=== PATIENT | male | born 1945 | race Caucasian/White ===

== ENCOUNTER 2024-06-10 20:09 | Emergency (ER) | payer MEDICARE, OTHER, SELFPAY ==
[2024-06-10 20:11] VITALS: BP 107/85
[2024-06-10 20:38] VITALS: BMI 27.2
--- NOTE | 2024-06-10 22:11 | ED.MUSCINJ ---
HPI-Injury
General
Chief Complaint: Fall
Source: patient
Exam Limitations: none
Time Seen by Provider: 06/10/24 21:16
Nursing documentation reviewed up to this point in time: agreed with
History of Present Illness-Injury
Is this injury a work related problem?: No
Is pt an associate of [facility]/[place]?: No
Initial Injury comments:
Patient states he tripped while walking up one step. Fell forward. Denies hitting his head. Able to get self up. Complains of pain to his right shoulder,left hip. Injury occurred this afternoon. Brought to eD by spouse for eval.
Past History
Past History
ED Past Medical History: HTN, Hypercholesterolemia and Other (BPH)
ED Past Surgical History: Other (Hernia repair, cataracts)
Social History
Tobacco: Non-smoker
Review of Systems
Review of Systems
Allergies reviewed?: Yes
All Other Systems: ROS reviewed and negative except as documented in HPI and ROS
Constitutional: Reports no symptoms
EENT: Reports no symptoms
Respiratory: Reports no symptoms
Cardiac: Reports no symptoms
ABD/GI: Reports no symptoms
Musculoskeletal: Reports joint pain (Pain to left hip, right shoulder)
Skin: Reports no symptoms
Neurological: Reports no symptoms
Psychiatric: Reports no symptoms
Musculoskeletal Injury Exam
Musculoskeletal Injury Exam
Right Shoulder:
Pain with Movement?: Moderate
Tender to palpation?: Moderate
Soft tissue swelling?: None
External deformity and angulation?: None
Contusion?: Moderate
Hematoma-local bleeding into tissue?: None
Strain- Sprain- Tear (Connective tissue injury)?: Moderate
Crepitus with movement?: No
Malalignment/deformity?: No
Range of motion: Limited
Distal skin color and temperature: normal-warm & good color
Capillary Refill: normal
Normal distal neurovascular exam?: Yes
Peripheral Pulses: radial (right): 3+
Left Hip:
Pain with Movement?: Moderate
Tender to palpation?: Moderate
Soft tissue swelling?: None
External deformity and angulation?: None
Joint effusion?: None
Contusion?: Moderate
Hematoma-local bleeding into tissue?: None
Strain- Sprain- Tear (Connective tissue injury)?: Moderate
Crepitus with movement?: No
Joint instability?: No
Malalignment/deformity?: No
Range of motion: Full
Distal skin color and temperature: normal-warm & good color
Capillary Refill: normal
Normal distal neurovascular exam?: Yes
Phy Exam
General Physical Exam
General Presentation: well appearing and no apparent distress
General age: appears stated age
General Skin: warm and dry
General Habitus: normal
Musculoskeletal Exam
Musculoskeletal Exam: neuro vasc intact and other (Pain to right shoulder, left hip. No swelling or bruising. )
Skin Exam
Skin Exam: normal color, warm/dry and no rash
Psychiatric Exam
Psychiatric Exam: normal mood/affect
Injury Course
Orders/Labs/Results
Orders:
Orders
06/10/24 20:44
CR Shoulder - Right Min 2 View Urgent
Comment:
Reason For Exam: fall,pain
Hip, Left 2-3 Views [CR Hip - LT w/wo Pel 2-3 Vw*] Urgent
Comment:
Reason For Exam: fall,pain
Include a pelvis x-ray?: Yes
06/10/24 22:05
Hydrocodone 5/APAP 325 [[place] 5/325] 1 tablet PO NOW STA
*Radiology
Radiology exam reviewed: radiology read reviewed
*Pulse Oximetry
Patient hypoxic: no
*Critical Care Note
Total Time (30-74mins, 75-104mins- exclusive of procedures): Not Applicable
ED Attending Note
-
Portions of this chart may have been created with voice recognition software.� Occasional wrong word or��sound alike� substitutions may have occurred due to the inherent limitations of voice recognition software.
Discharge Plan
Departure
Patient Disposition: Home (Routine Discharge)
Date of Disposition: 06/10/24
Time of Disposition: 22:05
Patient with high blood pressure during this ER visit?: No
Condition: Good
Covid-19: Not Applicable
Discharge Problem:
Shoulder sprain, Hip sprain
Instructions: Contusion (DC), Sprain (DC), Preventing falls in adults, Using Cold for Pain
Prescriptions:
New
oxycodone 5 mg capsule
5 mg PO Q4H PRN (Reason: Pain) Qty: 10 0RF
No Action
multivitamin 1 EACH tablet
1 ea PO DAILY
tamsulosin 0.4 MG capsule
0.4 mg PO DAILY
simvastatin 20 MG tablet
40 mg PO QPM
finasteride 5 MG tablet
1 tab PO DAILY
olmesartan 20 MG tablet
20 mg PO DAILY
Toprol Xl
1 tab PO DAILY
Referrals:
Yovanny Fernandez MD [Family Provider] -
Activity Restrictions/Additional Instructions:
Follow up with your orthopedic provider.
Interventions
Interventions:
*Risk Screen - Suicide Last Done: 06/10/24 20:10
*General Assessment Last Done: 06/10/24 20:11
*Neglect/Abuse Screening Last Done: 06/10/24 20:11
*ED COVID-19 Vaccine History Last Done: 06/10/24 20:39
ED-Musculoskeletal Assessment Last Done: 06/10/24 20:40
ED- Neurological Assessment Last Done: 06/10/24 20:40
ED-Skin Assessment Last Done: 06/10/24 20:40
Discharge Date and Time
Print Language: [place]
[2024-06-10] MEDS: NORCO 5/325 1 TABLET PO (22:15)
== END 2024-06-10 22:44 | disposition home or self-care (01) ==
LOC: EMR 20:09
PROVIDERS: EMERGENCY PHYSICIAN Emergency Medicine; FAMILY PHYSICIAN Family Medicine
DX: S43.401A Unspecified sprain of right shoulder joint, initial encounter (principal); S73.102A Unspecified sprain of left hip, initial encounter; W10.9XXA Fall (on) (from) unspecified stairs and steps, initial encounter
CPT/HCPCS: 99283; 73030; 73502

== ENCOUNTER → 2024-08-23 06:40 | Outpatient (REF) | payer MEDICARE, OTHER, SELFPAY | LOC: PAVMRI 06:40 | PROVIDERS: ATTENDING PHYSICIAN Orthopaedic Surgery; FAMILY PHYSICIAN Family Medicine | DX: M25.511 Pain in right shoulder (principal) | CPT/HCPCS: 73221 ==

== ENCOUNTER 2025-05-20 14:43 | Emergency (ER) | payer MEDICARE, OTHER, SELFPAY ==
[2025-05-20 14:44] VITALS: BP 124/84
--- NOTE | 2025-05-20 16:32 | ED.MUSCINJ ---
HPI-Injury
General
Chief Complaint: Extremity Pain (non-traumatic)
Source: patient
Time Seen by Provider: 05/20/25 15:45
History of Present Illness-Injury
Initial Injury comments:
79-year-old male presents with intermittent bilateral hip pain over the past week or so but today he noticed increased pain to the right hip and anterior thigh. This started after walking up and down the stairs. No fall. Since then he has been
having swelling in the proximal anterior right thigh. No chest pain or shortness of breath. He is on flecainide and Eliquis for A-fib. He is not a diabetic. He states the pain is bad to the point where he cannot bear any weight on it. No other
complaints at this time
Past History
Past History
ED Past Medical History: HTN, Hypercholesterolemia and Other (BPH)
ED Past Surgical History: Other (Hernia repair, cataracts)
Social History
Tobacco: Non-smoker
Phy Exam
Physical Exam
Physical Exam:
General: Well-appearing male in no acute respiratory distress
HEENT normal cephalic atraumatic
Heart: Regular rate and rhythm
Lungs: Clear no wheeze
Musculoskeletal exam: The right anterior thigh is swollen and tender into the groin. The swelling extends into the mid thigh. He is also tender to the lateral aspect of the right hip. Vascular 2+ DP pulse right foot
. 2+ femoral pulse right groin
Neurologic: Good sensation right leg
Injury Course
Orders/Labs/Results
Orders:
Orders
05/20/25 14:49
US Periph Venous LOWER Ext RT Urgent
Comment: attn upper leg
Reason For Exam: R leg swelling
05/20/25 16:01
CR Femur - Right Min 2 Vw Urgent
Comment:
Reason For Exam: pain,.swelling
CR Pelvis - 1 Or 2 Views Urgent
Comment:
Reason For Exam: pain right hip
05/20/25 16:31
Hydrocodone 5/APAP 325 [[place] 5/325] 1 tablet PO NOW STA
MDM/Problems Addressed
Differential Diagnosis Includes:
Right hip and thigh pain with swelling. Consider muscle strain versus hematoma versus fracture versus DJD versus DVT
DVT unlikely given anticoagulated state
Compartments are soft, no sign of compartment syndrome
*Pulse Oximetry
SaO2: 99
Oxygen Mode of Delivery: Room air
Patient hypoxic: no
*Critical Care Note
Total Time (30-74mins, 75-104mins- exclusive of procedures): Not Applicable
Update Note
Update Note:
Ultrasound right leg negative for DVT question possible lipoma versus hematoma in the anterior thigh. X-ray of the pelvis and right femur were negative for acute bony abnormality. I suspect underlying hip strain with hematoma. No signs of
compartment syndrome. Patient was able to ambulate with a walker here and is comfortable going home. He has an appoint with orthopedics in 2 days.
ED Attending Note
-
Portions of this chart may have been created with voice recognition software.� Occasional wrong word or��sound alike� substitutions may have occurred due to the inherent limitations of voice recognition software.
Discharge Plan
Departure
Patient Disposition: Home (Routine Discharge)
Date of Disposition: 05/20/25
Time of Disposition: 18:36
Patient with high blood pressure during this ER visit?: No
Discharge Problem:
Hematoma
Instructions: Muscle and Bone Pain (DC)
Prescriptions:
New
hydrocodone-acetaminophen 5-325 mg tablet
1 tab PO TID PRN (Reason: Pain) Qty: 10 0RF
No Action
multivitamin 1 EACH tablet
1 ea PO DAILY
tamsulosin 0.4 MG capsule
0.4 mg PO DAILY
simvastatin 20 MG tablet
40 mg PO QPM
finasteride 5 MG tablet
1 tab PO DAILY
olmesartan 20 MG tablet
20 mg PO DAILY
Toprol Xl
1 tab PO DAILY
oxycodone 5 mg capsule
5 mg PO Q4H PRN (Reason: Pain) Qty: 10 0RF
Referrals:
Yovanny Fernandez MD [Family Provider, Family Practice]
Activity Restrictions/Additional Instructions:
Use pain medicine as needed for severe pain. Use walker for support and ambulating. Follow-up with orthopedics as planned. Return if worse otherwise
Interventions
Interventions:
*Risk Screen - Suicide Last Done: 05/20/25 14:44
*General Assessment Last Done: 05/20/25 14:47
*Neglect/Abuse Screening Last Done: 05/20/25 18:26
*ED- Fall Risk Assessment Last Done: 05/20/25 16:07
ED-Skin Assessment Last Done: 05/20/25 16:05
ED-Peripheral Vascular Assessment Last Done: 05/20/25 16:05
ED-Musculoskeletal Assessment Last Done: 05/20/25 16:05
Discharge Date and Time
Print Language: LATVIAN
[2025-05-20] MEDS: NORCO 5/325 1 TABLET PO (16:37)
[2025-05-20 18:26] VITALS: BP 144/91
== END 2025-05-20 18:45 | disposition home or self-care (01) ==
LOC: EMR 14:43
PROVIDERS: EMERGENCY PHYSICIAN Emergency Medicine; FAMILY PHYSICIAN Family Medicine
DX: S70.01XA Contusion of right hip, initial encounter (principal); X58.XXXA Exposure to other specified factors, initial encounter; I48.91 Unspecified atrial fibrillation; I10 Essential (primary) hypertension; E78.00 Pure hypercholesterolemia, unspecified; N40.0 Benign prostatic hyperplasia without lower urinary tract symptoms; Z79.01 Long term (current) use of anticoagulants
CPT/HCPCS: 99284; 72170; 73552; 93971

== ENCOUNTER 2025-05-26 17:57 | Observation (INO) | payer MEDICARE, OTHER, SELFPAY ==
[2025-05-26 16:23] VITALS: BP 109/82
--- NOTE | 2025-05-26 16:39 | ED.GENMED ---
History of Present Illness
<Tram Diaz PA-C - Last Filed: 05/26/25 18:49>
General
Chief Complaint: Musculo-Skeletal Complaint
Source: patient and records
Exam Limitations: none
Time Seen by Provider: 05/26/25 16:37
History of Present Illness
History of Present Illness:
79yoM with a history of atrial fibrillation on Eliquis, hypertension, hyperlipidemia presenting with his for evaluation of right hip and leg pain. Symptoms initially began about a week ago. He states he bent over and felt a pain in the hip.
He was seen in the ED on 05/20 for the symptoms. X-rays were normal and venous duplex revealed 'questionable isoechoic soft tissue lesion within the subcutaneous soft tissues of the proximal thigh which may represent a fat-based lesion such as
lipoma although no definite borders are identified. Nonemergent CT or MRI may be considered if the patient reports a palpable abnormality.' He was diagnosed with a hematoma and discharge. He saw Dr. Ramey in the office this past week and plan
was for outpatient MRI. He started to have worsening pain today and was unable to ambulate prompting EMS call. spoke with the orthopedic PA presales consultant who advised them to go to the ED and be admitted for inpatient MRI. No paresthesias. He
denies any worsening swelling.
Past History
<Trma Diaz PA-C - Last Filed: 05/26/25 18:49>
Past History
ED Past Medical History: HTN, Hypercholesterolemia and Other (BPH)
ED Past Surgical History: Other (Hernia repair, cataracts)
Social History
Tobacco: Non-smoker
Phy Exam
<Tram Diaz PA-C - Last Filed: 05/26/25 18:49>
General Physical Exam
General Presentation: well appearing and no apparent distress
General Skin: warm and dry
General Habitus: normal
General Mental: alert
ENT Exam
ENT Exam: normocephalic
Pulmonary Exam
Pulmonary Exam: no respiratory distress
Neurological Exam
Neurological Exam: alert
[place] Coma Scale
Eye Opening: Spontaneous
Verbal Response: Oriented
Motor Response: Obeys Commands
GCS Total Score: 15
Musculoskeletal Exam
Musculoskeletal Exam: other (Ecchymosis noted to R lateral thigh. No significant soft tissue swelling. ROM of R hip decreased. Compartments soft. 2+ DP pulses bilaterally and sensation intact. )
Skin Exam
Skin Exam: warm/dry
Psychiatric Exam
Psychiatric Exam: normal mood/affect
Course
<Tram Diaz PA-C - Last Filed: 05/26/25 18:49>
Orders/Labs/Results
Orders:
Orders
05/26/25 Dinner
Regular
At Your Request: Full Participation
Does patient need a safe tray?: No
05/26/25 16:52
HYDROmorphone [Dilaudid] 0.5 mg IV NOW STA
05/26/25 17:05
Complete Blood Count/With Diff Urgent
Comprehensive Metabolic Panel Urgent
05/26/25 17:35
Admit/Transfer Patient As Directed
Co-Sign Provider:
Level of Care: Observation services
Assign to:: Telemetry
Physician / Group: yenni krueger
Diagnosis: traumatic Rhip/mid thigh pain/hematoma,amb dys, P.afib
Reason for Telemetry: Arrhythmia
Date to Stop Telemetry: 05/29/25
Time to Stop Telemetry: 11:00
Code Status As Directed
Resuscitation Status: Full Code
05/26/25 17:37
PRN Pain Medication Management As Directed
May give lesser potent ordered pain med per pt: Yes
preference::
Protocol:: Medication orders for pain may be administered in a
manner that supports deferring to patient preference
when the pt is:
- Requesting an ordered lesser potent pain medication.
Least to most potent pain medications are defined
as: acetaminophen < NSAID < tramadol < opioids
(morphine, oxycodone, hydromorphone).
- Requesting a lesser dose of the same medication IF
ORDERED.
- Requesting a less intrusive route of administration
if both routes are prescribed by the provider (PO <
IV).
05/26/25 17:42
ORTHOPEDIC CONSULT Routine
Consulting Provider: Casey Velez
Was physician already notified: Yes
Reason for consult: right hip/thigh pain hematoma amb dysfunction
05/26/25 18:41
Acetaminophen [Tylenol] 650 mg PO Q4HPRN PRN
Bisacodyl [Dulcolax] 10 mg RECTAL [id number] PRN
Docusate W/Senna [Senokot-S] 1 tablet PO BIDPRN PRN
HYDROmorphone [Dilaudid] 0.5 mg IV Q3HPRN PRN
HYDROmorphone [Dilaudid] 1 mg IV Q4HPRN PRN
Hydrocodone 5/APAP 325 [[place] 5/325] 1 tablet PO TID PRN breakthru mod pain breakthru mod pain
Ondansetron Injectable [Zofran] 4 mg IV Q6HPRN PRN
Polyethylene Glycol Powder [Miralax] 17 grams PO DAILYPRN PRN
simvastatin 40 mg PO QPM
05/26/25 18:41
Activity As Directed
Activity Level: With Assistance
Pneumatic Compression Sleeves As Directed
Type: Knee high
Vital Signs As Directed
Frequency: Per unit guidelines
Ot Eval And Treat Routine
Pt Eval And Treat Routine
Activity Level: With Assistance
DX Deep Vein Thrombosis Video Routine
05/26/25 20:00
Flecainide [Tambocor] 50 mg PO BID
05/26/25 22:00
silodosin 8 mg PO HS
05/27/25 06:00
Complete Blood Count/With Diff IN AM
Comprehensive Metabolic Panel IN AM
MR Right Le Joint With IN AM
Comment: right hip/mid thigh hematoma injury
Reason For Exam: hematoma
OK for patient to be off Cardiac Monitoring for MRI: Yes
Recent pill cam endoscopy?: No
Pacemaker/Defibrillator?: No
05/27/25 08:00
Finasteride [Proscar] 5 mg PO DAILY
Tamsulosin [Flomax] 0.4 mg PO DAILY
Toprol Xl 12.5 mg PO DAILY
05/29/25 11:00
DC Protocol for Telemetry ONCE
Abnormal Lab Results
05/26/25
17:05
RBC 3.74 L 10^6/uL
(4.70-6.10)
Hgb 12.2 L g/dL
(13.0-18.0)
Hct 35.8 L %
(39.0-52.0)
MCV 95.7 H fL
(80.0-94.0)
MCH 32.6 H pg
(27.0-31.0)
Absolute Monos (auto) 0.7 H 10^3/uL
(0.1-0.6)
Lymphocytes % 16.5 L %
(20.5-51.1)
BUN 22 H mg/dl
(9-20)
Glucose 118 H mg/dl
(70-99)
05/26/25 17:05
05/26/25 17:05
Vital Signs
Initial and Last Documented VS:
Initial Vital Signs
Temp Pulse Resp BP Pulse Ox
97.9 F 64 18 109/82 99
05/26/25 16:23 05/26/25 16:23 05/26/25 16:23 05/26/25 16:23 05/26/25 16:23
Last Documented Vital Signs
Temp Pulse Resp BP Pulse Ox
97.9 F 56 18 152/73 98
05/26/25 16:23 05/26/25 18:15 05/26/25 16:23 05/26/25 18:00 05/26/25 18:15
<Saman NiravSy Crooks DO - Last Filed: 05/26/25 17:10>
Orders/Labs/Results
Orders:
Orders
05/26/25 Dinner
Regular
At Your Request: Full Participation
Does patient need a safe tray?: No
05/26/25 16:52
HYDROmorphone [Dilaudid] 0.5 mg IV NOW STA
05/26/25 17:05
Complete Blood Count/With Diff Urgent
Comprehensive Metabolic Panel Urgent
05/26/25 17:35
Admit/Transfer Patient As Directed
Co-Sign Provider:
Level of Care: Observation services
Assign to:: Telemetry
Physician / Group: yenni krueger
Diagnosis: traumatic Rhip/mid thigh pain/hematoma,amb dys, P.afib
Reason for Telemetry: Arrhythmia
Date to Stop Telemetry: 05/29/25
Time to Stop Telemetry: 11:00
Code Status As Directed
Resuscitation Status: Full Code
05/26/25 17:37
PRN Pain Medication Management As Directed
May give lesser potent ordered pain med per pt: Yes
preference::
Protocol:: Medication orders for pain may be administered in a
manner that supports deferring to patient preference
when the pt is:
- Requesting an ordered lesser potent pain medication.
Least to most potent pain medications are defined
as: acetaminophen < NSAID < tramadol < opioids
(morphine, oxycodone, hydromorphone).
- Requesting a lesser dose of the same medication IF
ORDERED.
- Requesting a less intrusive route of administration
if both routes are prescribed by the provider (PO <
IV).
05/26/25 17:42
ORTHOPEDIC CONSULT Routine
Consulting Provider: Casey Velez
Was physician already notified: Yes
Reason for consult: right hip/thigh pain hematoma amb dysfunction
05/26/25 18:41
Acetaminophen [Tylenol] 650 mg PO Q4HPRN PRN
Bisacodyl [Dulcolax] 10 mg RECTAL [id number] PRN
Docusate W/Senna [Senokot-S] 1 tablet PO BIDPRN PRN
HYDROmorphone [Dilaudid] 0.5 mg IV Q3HPRN PRN
HYDROmorphone [Dilaudid] 1 mg IV Q4HPRN PRN
Hydrocodone 5/APAP 325 [[place] 5/325] 1 tablet PO TID PRN breakthru mod pain breakthru mod pain
Ondansetron Injectable [Zofran] 4 mg IV Q6HPRN PRN
Polyethylene Glycol Powder [Miralax] 17 grams PO DAILYPRN PRN
simvastatin 40 mg PO QPM
05/26/25 18:41
Activity As Directed
Activity Level: With Assistance
Pneumatic Compression Sleeves As Directed
Type: Knee high
Vital Signs As Directed
Frequency: Per unit guidelines
Ot Eval And Treat Routine
Pt Eval And Treat Routine
Activity Level: With Assistance
DX Deep Vein Thrombosis Video Routine
05/26/25 20:00
Flecainide [Tambocor] 50 mg PO BID
05/26/25 22:00
silodosin 8 mg PO HS
05/27/25 06:00
Complete Blood Count/With Diff IN AM
Comprehensive Metabolic Panel IN AM
MR Right Le Joint With IN AM
Comment: right hip/mid thigh hematoma injury
Reason For Exam: hematoma
OK for patient to be off Cardiac Monitoring for MRI: Yes
Recent pill cam endoscopy?: No
Pacemaker/Defibrillator?: No
05/27/25 08:00
Finasteride [Proscar] 5 mg PO DAILY
Tamsulosin [Flomax] 0.4 mg PO DAILY
Toprol Xl 12.5 mg PO DAILY
05/29/25 11:00
DC Protocol for Telemetry ONCE
Abnormal Lab Results
05/26/25
17:05
RBC 3.74 L 10^6/uL
(4.70-6.10)
Hgb 12.2 L g/dL
(13.0-18.0)
Hct 35.8 L %
(39.0-52.0)
MCV 95.7 H fL
(80.0-94.0)
MCH 32.6 H pg
(27.0-31.0)
Absolute Monos (auto) 0.7 H 10^3/uL
(0.1-0.6)
Lymphocytes % 16.5 L %
(20.5-51.1)
BUN 22 H mg/dl
(9-20)
Glucose 118 H mg/dl
(70-99)
05/26/25 17:05
05/26/25 17:05
Vital Signs
Initial and Last Documented VS:
Initial Vital Signs
Temp Pulse Resp BP Pulse Ox
97.9 F 64 18 109/82 99
05/26/25 16:23 05/26/25 16:23 05/26/25 16:23 05/26/25 16:23 05/26/25 16:23
Last Documented Vital Signs
Temp Pulse Resp BP Pulse Ox
97.9 F 56 18 152/73 98
05/26/25 16:23 05/26/25 18:15 05/26/25 16:23 05/26/25 18:00 05/26/25 18:15
<Tram Diaz PA-C - Last Filed: 05/26/25 18:49>
MDM/Problems Addressed
Differential Diagnosis Includes:
79yoM here with R hip/thigh pain. Seen in ED last week and diagnosed with hematoma. Here with worsening pain and inability to ambulate. Sent in by ortho team for admission/MRI. VSS. He is well appearing in no distress. Ecchymosis noted on exam. RLE
is neurovascularly intact with 2+ DP pulse. No clinical evidence of compartment syndrome. Differential diagnosis includes: Contusion, hematoma, occult fracture
Basic labs and IV Dilaudid ordered for pain. Patient admitted for pain control, MRI, and ortho consult.
<Tram Diaz PA-C - Last Filed: 05/26/25 18:49>
*Pulse Oximetry
SaO2: 99
Oxygen Mode of Delivery: Room air
Patient hypoxic: no
*Critical Care Note
Total Time (30-74mins, 75-104mins- exclusive of procedures): Not Applicable
ED Attending Note
<Tram Diaz PA-C - Last Filed: 05/26/25 18:49>
-
Portions of this chart may have been created with voice recognition software.� Occasional wrong word or��sound alike� substitutions may have occurred due to the inherent limitations of voice recognition software.
<Saman Crooks DO - Last Filed: 05/26/25 17:10>
ED Attending Note
Patient seen and examined by attending physician: Yes
I performed the substantive portion of visit, reviewed & personally made and approve the management plan that is documented in note by myself or EVANS.: Yes
ED Attending Note:
I agree with Lilo's note.
Patient complaining of increasing pain in his right hip, thigh with pain that radiates down to his lower leg. Patient does take Eliquis for A-fib. Pain began spontaneously several days ago. He was seen here in the emergency had negative x-rays.
Pain continues to worsen. Patient called his orthopedic doctor today because of the worsening pain they referred him to the emergency room.
Right lower extremity: Pulses intact. Sensation intact. Compartments are soft. There is significant ecchymosis noted lateral thigh
Admit for pain control, further workup as directed by Ortho. Suspect spontaneous hematoma from anticoagulation use.
Discharge Plan
Departure
Patient Disposition: Admit
Date of Disposition: 05/26/25
Time of Disposition: 16:59
Presentation/result/management discussed w/ accepting MD/DO: Hospitalist
Discharge Problem:
Hematoma of right thigh, Ambulatory dysfunction
Interventions
Interventions:
*Risk Screen - Suicide Last Done: 05/26/25 16:23
*General Assessment Last Done: 05/26/25 16:23
*Neglect/Abuse Screening Last Done: 05/26/25 16:23
*ED- Fall Risk Assessment Last Done: 05/26/25 17:34
*ED COVID-19 Vaccine History Last Done: 05/26/25 16:51
*ED Influenza Vaccine History Last Done: 05/26/25 16:51
*Nursing Disposition Last Done: 05/26/25 18:23
ED-Musculoskeletal Assessment Last Done: 05/26/25 17:12
Discharge Date and Time
Discharge Date/Time: 05/26/25 18:24
--- NOTE | 2025-05-26 17:02 | W.PN.UPDATE ---
Update Note
Progress Note Update
This note serves as an addendum to the H&P by lending activities supervisor Gogo Benton
�
HPI�
79M HX AF, was on on Eliquis, hypertension, hyperlipidemia seen at ER:
- pw for for evaluation of right hip and leg pain.
- initially began about a week ago when he bent over and felt a pain in the hip.
- seen in the ED on 05/20 for the symptoms.
- On 05/20/25 unremarkable Pelvis XR pelvis and Rt Hip. US R DESTINEY suggest questionable isoechoic soft tissue lesion within the subcutaneous soft tissues of the proximal thigh which may represent a fat-based lesion such as lipoma although no
definite borders are identified. Nonemergent CT or MRI may be considered if the patient reports a palpable abnormality.' He was diagnosed with a hematoma and discharge.
- FU consult by Dr. Ramey in the office this past week and plan was for outpatient MRI.
- reports worsening pain today and was unable to ambulate prompting EMS call.
- spoke with the orthopedic PA suggests ED and be admitted for inpatient MRI.
- No paresthesias.
- He denies any worsening swelling.
PHX: HTN, Hypercholesterolemia and Other (BPH)
PHX
Relevant VS
Vital Signs
Temp Pulse Resp BP Pulse Ox
97.9 F 64 18 109/82 99
05/26/25 16:23 05/26/25 16:23 05/26/25 16:23 05/26/25 16:23 05/26/25 16:40
PE
Gen: NAD , Intense
HEENT: symmetric face
Neck:supple
Lungs: CTA
Cor: RRR S1 S2 . No mm
Abdomen:�soft abdomen
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
MS: Rt mid thigh echinoses
Psych: Nl mood and nl affect
Relevant Data
R Destiney US
No sonographic evidence for RIGHT lower extremity deep venous thrombosis.
There is a questionable isoechoic soft tissue lesion within the subcutaneous soft tissues of the proximal thigh which may represent a fat-based lesion such as lipoma although no definite borders are identified.
Nonemergent CT or MRI may be considered if the patient reports a palpable abnormality.
05/20/25 Pelvis XR
There is no evidence of acute pelvic fracture.
05/20/25 R Femur XR
There is no evidence of acute fracture or dislocation of the hip.
Mild degenerative changes, similar to prior.
NO prior hospitalist admission:
ASSESSMENT & PLAN
Pending Rx reconciliation
Acute ambulatory dysfunction due to Rt Hip and thigh pain s/p OSH fall ( 05/20/25 )
ER eval on 05/20 suggest likely prox Rt thigh traumatic hematoma base upon R UEx US report' questionable isoechoic soft tissue lesion within the subcutaneous soft tissues of the proximal thigh '
- Currently on Eliquis - will hold till MRI
- PRN analgesia
- MRI Hip
- Ortho consult
In NSR
HX Prx AF
HX 3 CV and 1 ablation in the past
- P Card - Dr Astudillo
- Hold Eliquis for now
- On Toprol
- On Flecanide
Known HX:
Essential HTN
BPH
DVT Px: SCD to Lt Destiney
Full code
OBS TLM
--- NOTE | 2025-05-26 17:05 | HPS.HSE ---
Family Physician
-
Family Physician:
Chief Complaint
-
Right hip/mid thigh pain inability ambulate
History of Present Illness
79-year-old male who reportedly bent over to lift a box and felt pain in his right hip on May 19. He was seen in the ED on 05/20 had x-rays of hip and pelvis which was negative for fracture. He had venous duplex which showed a questionable soft
tissue lesion within subcutaneous soft tissue of the proximal thigh which may represent a fat based lesion such as lipoma he was due to follow-up for outpatient MRI per Dr. Ramey. He was discharged to home with diagnosis of right hip hematoma.
He reports he was using a walker used to bike and once. Was able to get around with a walker however today complains of worsening pain with inability to ambulate requiring EMS to transport to the hospital. He states he tried multiple different
chairs than was stuck in the recliner unable to bear weight on his right leg due to right hip and thigh pain. He has been taking his Eliquis for paroxysmal A-fib. He denies fever, chills, paresthesias, bowel or bladder incontinence, chest pain,
palpitations, cough, shortness of breath, abdominal pain, nausea, vomiting, diarrhea, urinary symptoms. He has past medical history of hypertension, hyperlipidemia, BPH, A-fib on Eliquis/flecainide
Medical History
Past Medical History
Past Medical History: Reports Other
Additional Past Medical History:
hypertension
hyperlipidemia
BPH
A-fib on Eliquis/flecainide new diagnosis 05/24/2024
Past Surgical History: Reports Other
Additional Past Surgical History:
Abscess with bone grafting of jaw reconstruction
Hernia repair x 2
Cataract extraction left eye 2007 right eye
200 right rotator cuff repair right hand skin cancer removal June 2016
Cardioversion June 2024, September 2024, November 2024 cardiac ablation October 2024 for A-fib
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
Social History
Tobacco: Non-smoker
Alcohol: Occasional (Once a week)
Drug: None
Personal:
Living: With Family ()
Employment: Retired
Family History
Family History: Not pertinent
Allergies / Home Medications
Allergies reflects when Allergies were last updated in [employer].
Home Medications with original date entered in [employer]
Allergy/Medication List:
Allergies
Allergy/AdvReac Type Severity Reaction Status Date / Time
dutasteride Allergy Unknown Verified 05/26/25 16:22
lisinopril Allergy Unknown Verified 05/26/25 16:22
losartan Allergy Unknown Verified 05/26/25 16:22
nifedipine (From Procardia) Allergy Swelling Verified 05/26/25 16:22
Home Medications
Toprol Xl 12.5 mg PO DAILY 08/27/20
finasteride 5 mg tablet 1 tab PO DAILY 08/27/20
multivitamin 1 ea PO DAILY 08/27/20
simvastatin 20 mg tablet 40 mg PO QPM 08/27/20
tamsulosin 0.4 mg capsule 0.4 mg PO DAILY 08/27/20
hydrocodone 5 mg-acetaminophen 325 mg tablet 1 tab PO TID PRN Pain #10 tabs 05/20/25
apixaban 5 mg tablet (Eliquis) 5 mg PO BID 05/26/25
flecainide 50 mg tablet 50 mg PO BID 05/26/25
silodosin 8 mg capsule 8 mg PO HS 05/26/25
Review of Systems
-
History Source: Patient and Family ( at bedside)
A 12 point ROS was completed and negative except as noted: Yes
Constitutional: Denies Fever or Fatigue
EENT: Denies Sore Throat or Runny Nose
Respiratory: Denies Cough or Trouble Breathing
Cardiac: Denies Chest Pain, Diaphoresis, Palpitations or Syncope
Abdomen/GI: Denies Abdominal Pain, Nausea, Vomiting, Diarrhea, Constipated or Bloody Stools
: Denies Dysuria, Frequency, Flank Pain, Incontinence or Difficulty Voiding
Musculoskeletal: Reports Joint Pain (Right greater trochanter, right mid thigh with surrounding area of resolving ecchymosis yellowish-purple in color)
Skin: Denies Itching or Rash
Neurological: Reports Weakness (Patient reports unable to bear weight on right leg due to pain); Denies Dizzy or Headache
Endocrine: Reports No Symptoms
Hematologic/Lymphatic: Reports No Symptoms
Psych: Reports Calm
Physical Exam
Vital Signs
Vital Signs
Temp Pulse Resp BP Pulse Ox
97.9 F 64 18 109/82 99
05/26/25 16:23 05/26/25 16:23 05/26/25 16:23 05/26/25 16:23 05/26/25 16:40
Physical Exam
General: Comfortable and Conversant; No Fever or Chills
HEENT: NormoCephalic, Anicteric, Moist mucous membranes, Atraumatic, PERRLA, [place] Conjunctivae and No Ptosis
Respiratory: Clear; No Wheezes, Rales or Rhonchi
Cardiac: S1/S2, Regular Rhythm and Murmur (2/6 systolic); No Rub, Gallop or Peripheral Edema
Breast: Deferred by me
GI: Soft, Non Tender, Non Distended, Normal Bowel Sounds and No Hepatosplenomegaly
Rectal: Deferred by Provider
Genito-urinary: Deferred by me
Musculoskeletal: No Clubbing, No Cyanosis and Edema, Right Lower Extremity (Right greater trochanter, right mid thigh with surrounding area of resolving ecchymosis yellowish-purple in color); No Edema, Left Upper Extremity, Edema, Right Upper
Extremity or Edema, Left Lower Extremity
Skin: Warm and Dry; No Rash
Neuro: AO x 3, No Sensory Deficits and Other (Unable to ambulate right leg due to hip pain); No Slurred Speech, Facial Droop, Tremors or Sedated
Psych: Calm
Impression/Plan
-
Impression/plan:
Observation telemetry
# Traumatic right hip pain/thigh hematoma with ambulatory dysfunction
-Bent over May 19 developed right hip/thigh pain with ecchymosis
- Patient on Eliquis
- Consult Dr. Ramey
- MRI right hip/pelvis
- Hold Eliquis
-IV Dilaudid as needed pain, Tylenol, Vicodin, bowel regimen
- Labs pending on admission
X-ray right hip 05/20/2025: No acute fracture or dislocation mild degenerative changes
Pelvic x-ray 05/20/2025: No acute pelvic fracture
#A-fib paroxysmal new Dx 05/24/2024
#History of cardioversion June 2024, September 2024, November 2024, cardiac ablation October 2023
Continue flecainide
-Hold Eliquis
-Current sinus rhythm
- Follows with Dr. Nguyen [facility]
#History of known cardiac murmur
#HTN
Continue Toprol XL 12.5 mg a.m.
#HLD
- Continue Zocor 40 mg every afternoon
#BPH
- Continue Proscar 5 mg a.m., Rapaflo 8 mg at bedtime
DVT prophylaxis
SCDs
Full code
[2025-05-26] MEDS: DILAUDID 0.5 MG IV (17:06)
[2025-05-26 17:09] VITALS: BP 141/72
[2025-05-26 17:18] LABS: Hematocrit 35.8 % (39.0-52.0); Hemoglobin 12.2 g/dL (13.0-18.0); Mean Corp Hgb Conc. 34.1 g/dL (33.0-37.0); Mean Corpuscular Volume 95.7 fL (80.0-94.0); Nucleated Red Blood Cells % 0 % (-); Platelet Count 176 10^3/uL (130-400); Red Cell Dist. Width 12.8 % (11.5-14.5)
[2025-05-26 17:32] LABS: ALT (SGPT) 22 U/L (0-50); AST (SGOT) 31 U/L (17-59); Albumin 4.5 g/dl (3.5-5.0); Alkaline Phosphatase 87 U/L (38-126); Blood Urea Nitrogen 22 mg/dl (9-20); Calcium 9.4 mg/dl (8.4-10.2); Carbon Dioxide 24 mmol/L (22-30); Chloride 102 mmol/L (98-107); Glucose 118 mg/dl (70-99); Potassium 3.6 mmol/L (3.5-5.1); Sodium 137 mmol/L (135-145); Total Protein 7.2 g/dl (6.3-8.2); eGFR > 60.00
[2025-05-26 18:00] VITALS: BP 152/73
--- NOTE | 2025-05-26 19:07 | PTCARENOTE ---
1830 arrived to floor, with . Aox3 bed low, call holland in ring, requires box lunch for regular diet, skin assessed. static overlay on
[2025-05-26] MEDS: TAMBOCOR 50 MG PO (19:50)
[2025-05-26 20:05] VITALS: BP 157/81
[2025-05-26] MEDS: NORCO 5/325 1 TABLET PO (22:23)
[2025-05-26 23:29] VITALS: BP 137/77
[2025-05-27] VITALS (7 sets, daily range): BP systolic 110–143; BP diastolic 61–75; PULSE 55–63; O2SAT 96–98
[2025-05-27 07:15] LABS: Hematocrit 37.3 % (39.0-52.0); Hemoglobin 11.8 g/dL (13.0-18.0); Mean Corp Hgb Conc. 31.6 g/dL (33.0-37.0); Mean Corpuscular Volume 102.2 fL (80.0-94.0); Nucleated Red Blood Cells % 0 % (-); Platelet Count 177 10^3/uL (130-400); Red Cell Dist. Width 13.2 % (11.5-14.5)
[2025-05-27 07:24] LABS: ALT (SGPT) 19 U/L (0-50); AST (SGOT) 28 U/L (17-59); Albumin 4.0 g/dl (3.5-5.0); Alkaline Phosphatase 66 U/L (38-126); Blood Urea Nitrogen 17 mg/dl (9-20); Calcium 9.0 mg/dl (8.4-10.2); Carbon Dioxide 30 mmol/L (22-30); Chloride 100 mmol/L (98-107); Glucose 116 mg/dl (70-99); Potassium 4.4 mmol/L (3.5-5.1); Sodium 135 mmol/L (135-145); Total Protein 6.9 g/dl (6.3-8.2); eGFR > 60.00
[2025-05-27] MEDS: TOPROL XL 12.5 MG PO (08:00)
[2025-05-27] MEDS: TAMBOCOR 50 MG PO ×2 (08:01→19:31)
[2025-05-27] MEDS: PROSCAR 5 MG PO (08:01)
--- NOTE | 2025-05-27 08:01 | CON.ORTHO ---
Consultation
-
Date/Time Consultation Requested: 05/26/2025
Date/Time Consultation Performed: 05/27/2025
Requesting Provider: BI Marcano
Performing Provider: Amara Lewis PA-C, for Dr. Casey Velez
Reason for Consultation: Right hip pain; right thigh hematoma
Consultation - Orthopedics
History
HPI: Mr. Lewis is a 79-year-old male who presented to [facility] emergency department after experiencing increased right hip and thigh pain and inability to ambulate. He initially began to feel the pain 1 week ago when he went to put a
box of Halloween decorations down. He felt a pulling sensation about the lateral and anterior thigh. Following this, he had increased pain that progressively worsened to the point where he presented to [facility] emergency department on
05/20/2025. X-rays were taken and negative for acute fracture. An ultrasound was performed which showed a small hypoechoic area. He was able to ambulate with a walker, so was discharged home and then seen in our outpatient office by Dr. Ramey on
05/22/2025. His pain was out of proportion to what was seen on imaging, so an MRI of the right hip was ordered. Over the course of the past several days, he states the swelling started to improve, but the bruising began to appear. His MRI was
scheduled to be performed on 05/30/2025. Unfortunately, yesterday, he began to experience progressively worsening pain to the point where he could not ambulate and or find a comfortable position at home. He contacted our orthopedic answering
service, and I recommended that he present to the emergency department for safety purposes and further workup of his excruciating right hip pain. He was admitted to the hospitalist service and an MRI has been ordered. He states he is next in line
for imaging. He does report being significantly more comfortable this morning after receiving pain medication overnight. He was able to transfer to the bedside commode with limited assistance.
Past medical history: Significant for hypertension, hyperlipidemia, BPH, A-fib on Eliquis.
Past surgical history: Abscess with bone grafting of jaw reconstruction, hernia repair x 2, bilateral cataract repairs, right rotator cuff repair, right hand skin cancer removal, multiple cardioversions, cardiac ablation October 2024, cardiac
catheterization.
Social history: Denies tobacco or alcohol use. Lives with at home.
Family history: Noncontributory.
Review of systems: All systems reviewed and negative except for those mentioned in HPI.
Allergies / Home Medications
Allergy/AdvReac Type Severity Reaction Status Date / Time
dutasteride Allergy Unknown Verified 05/26/25 16:22
lisinopril Allergy Unknown Verified 05/26/25 16:22
losartan Allergy Unknown Verified 05/26/25 16:22
nifedipine (From Procardia) Allergy Swelling Verified 05/26/25 16:22
�Medication �Instructions �Recorded
Toprol Xl 12.5 mg PO DAILY 08/27/20
finasteride 5 mg tablet 1 tab PO DAILY 08/27/20
multivitamin 1 ea PO DAILY 08/27/20
simvastatin 20 mg tablet 40 mg PO QPM 08/27/20
tamsulosin 0.4 mg capsule 0.4 mg PO DAILY 08/27/20
hydrocodone 5 mg-acetaminophen 325 1 tab PO TID PRN Pain #10 tabs 05/20/25
mg tablet
apixaban 5 mg tablet (Eliquis) 5 mg PO BID 05/26/25
flecainide 50 mg tablet 50 mg PO BID 05/26/25
silodosin 8 mg capsule 8 mg PO HS 05/26/25
Vital Signs / Lab Results
Temp Pulse Resp BP Pulse Ox
97.7 F 62 16 126/70 97
05/27/25 07:20 05/27/25 07:20 05/27/25 07:20 05/27/25 07:20 05/27/25 07:20
05/27/25 06:23
05/27/25 06:23
Physical examination:
General: Well-developed, well-nourished male in no acute distress. AO x 4.
HEENT: Atraumatic, normocephalic, neck supple.
Lungs: Nonlabored breathing on room air. No audible wheezing.
Right hip/thigh: Moderate ecchymoses extending from mid thigh into posterior calf. Diffuse tenderness to palpation about the anterior and lateral thigh with associated soft tissue swelling in this region. Gentle range of motion of hip elicits
significant pain in the groin as well as the lateral hip. Calf is soft and nontender to palpation. Able to actively extend the knee without difficulty. Neurovascular intact distally.
Radiographic studies:
X-rays of the pelvis and left hip from 05/20/2025 showed moderate degenerative changes but no acute fracture or acute osseous abnormality.
Ultrasound of the right hip/thigh from 05/20/2025 shows a small hypoechoic area, possibly representing a lipoma. MRI can be considered for further clinical evaluation.
Assessment / Plan
Assessment: Right thigh hematoma; right hip pain.
Plan: Unfortunately, Mr. Lewis continues to experience significant right hip and thigh pain despite activity modification and utilizing a walker to offload weight. This came to a peak last night despite any known aggravation. He does report
improvement in symptoms overnight with IV and oral pain medication. He is scheduled to proceed with a right hip MRI later this morning. This will help further delineate the nature of his injury and guide us on treatment recommendations going
forward. In the meantime, he will continue with pain medication as needed and activity to tolerance. We will follow-up once the imaging has been completed to discuss our recommendations.
[2025-05-27] MEDS: NORCO 5/325 1 TABLET PO (08:06)
[2025-05-27 08:54] LABS: Hepatitis C Antibody Negative (Negative)
--- NOTE | 2025-05-27 12:52 | W.PN.HOSP.TC ---
Today's Communication/Plan
-
MRI
ortho recs
pain control
PT
Assessment / Plan
Assessment / Plan
Physical Exam
General: Comfortable and Conversant; No Fever or Chills
HEENT: NormoCephalic, Anicteric, Moist mucous membranes, Atraumatic, PERRLA, [place] Conjunctivae and No Ptosis
Respiratory: Clear; No Wheezes, Rales or Rhonchi
Cardiac: S1/S2, Regular Rhythm and Murmur (2/6 systolic); No Rub, Gallop or Peripheral Edema
Breast: Deferred by me
GI: Soft, Non Tender, Non Distended, Normal Bowel Sounds and No Hepatosplenomegaly
Rectal: Deferred by Provider
Genito-urinary: Deferred by me
Musculoskeletal: No Clubbing, No Cyanosis and Edema, Right Lower Extremity (Right greater trochanter, right mid thigh with surrounding area of resolving ecchymosis yellowish-purple in color); No Edema, Left Upper Extremity, Edema, Right Upper
Extremity or Edema, Left Lower Extremity
Skin: Warm and Dry; No Rash
Neuro: AO x 3, No Sensory Deficits and Other (Unable to ambulate right leg due to hip pain); No Slurred Speech, Facial Droop, Tremors or Sedated
Psych: Calm
# Traumatic right hip pain/thigh hematoma with ambulatory dysfunction
-Bent over May 19 developed right hip/thigh pain with ecchymosis
- Patient on Eliquis
- MRI right hip/pelvis
- Hold Eliquis - until ortho recs
-Ortho consulted
-IV Dilaudid as needed pain, Tylenol, Vicodin, bowel regimen - improved
#A-fib paroxysmal new Dx 05/24/2024
#History of cardioversion June 2024, September 2024, November 2024, cardiac ablation October 2023
-Continue flecainide
-Hold Eliquis
- Follows with Dr. Nguyen [facility]
#History of known cardiac murmur
#HTN
Continue Toprol XL 12.5 mg a.m.
#HLD
- Continue Zocor 40 mg every afternoon
#BPH
- Continue Proscar 5 mg a.m., Rapaflo 8 mg at bedtime
DVT prophylaxis
SCDs
Full code
Anticipated Discharge: Within 24 hours
Subjective/Interval History
-
Date of Service: May 27, 2025
Pain controlled
Objective Data
-
Labs:
Laboratory Results
05/27/25
06:23
WBC 8.4
Hgb 11.8 L
Hct 37.3 L
Plt Count 177
Sodium 135
Potassium 4.4
Chloride 100
Carbon Dioxide 30
BUN 17
Creatinine 0.7
Glucose 116 H
Calcium 9.0
Total Bilirubin 1.0
AST 28
ALT 19
Alkaline Phosphatase 66
Vital Signs:
Vital Signs
Temp Pulse Resp BP Pulse Ox
97.7 F 62 16 126/70 97
05/27/25 07:20 05/27/25 07:20 05/27/25 07:20 05/27/25 07:20 05/27/25 07:20
I&O
05/26/25 05/27/25 05/28/25
06:59 06:59 06:59
Intake Total 240 / 240
Balance 240 / 240
Review of Systems
-
History Source: Patient
All other systems: Not reviewed unless documented
Data Reviewed
-
Labs: Labs Reviewed by me
[2025-05-27] MEDS: TYLENOL 650 MG PO ×2 (13:37→19:33)
--- NOTE | 2025-05-27 15:15 | CM ---
Initial assessment was completed with pt and at bedside.
Pt is a 79yr old male admitted with hip/thigh pain that lead to inability to ambulate.
At baseline, pt lives with his in a 1 level home that has 3 steps to enter.
Per pt and , up until this week, pt was indep and not needing assistance/DME. Since this new onset of pain, pt has been using Walker to get around the house and up steps into the home.
Additional equipment that pt has access to, but does not use currently include; raised toilet seat, size tester, cane, and shower chair.
Pt has no hx of VN/SNF use
Awaiting MRI results for recommendations
PCP; Yovanny Fernandez
Pharm; [facility]
PLAN; Home with no needs anticipated
[2025-05-27] MEDS: LIPITOR 20 MG PO (16:12)
[2025-05-27] MEDS: NORCO 5/325 PO (16:12)
[2025-05-27] MEDS: FLOMAX 0.4 MG PO (16:14)
[2025-05-28 03:00] VITALS: BP 118/63
--- NOTE | 2025-05-28 05:26 | W.PN.UPDATE ---
Update Note
Progress Note Update
MRI right hip reveals a large hematoma right hip/thigh which could represent a Donald-Cara lesion (8x2.5x23 cm). Infection, at this point, very unlikely. Patient reports significant improvement in level of pain since Wednesday, which is
encouraging. Initially on Eliquis, which is probably when this occurred and was acutely exacerbated. Generalized pain about the right hip/thigh. ROM does reproduce some pain. DNVI RLE. Would recommend supportive measures for now with pain control.
Compression to the area to prevent worsening of symptoms. PT/OT as tolerated. Will monitor. Would not suggest IR at this time for aspiration, unless clinically worsening. Would believe this to be rather acute/subacute, so hopefully will resolve and
improve, but again IR or even open surgical decompression may be necessary, depending. Will follow. When medically optimized, and clinically not worsening, may D/c to follow along outpatient, as long as he is doing well with PT/OT.
[2025-05-28] MEDS: TYLENOL 650 MG PO (06:19)
[2025-05-28 07:03] LABS: Hematocrit 34.9 % (39.0-52.0); Hemoglobin 11.5 g/dL (13.0-18.0); Mean Corp Hgb Conc. 33.0 g/dL (33.0-37.0); Mean Corpuscular Volume 102.6 fL (80.0-94.0); Platelet Count 169 10^3/uL (130-400); Red Cell Dist. Width 13.1 % (11.5-14.5)
[2025-05-28 07:22] LABS: Blood Urea Nitrogen 18 mg/dl (9-20); Calcium 8.6 mg/dl (8.4-10.2); Carbon Dioxide 29 mmol/L (22-30); Chloride 101 mmol/L (98-107); Glucose 99 mg/dl (70-99); Sodium 137 mmol/L (135-145); eGFR > 60.00
[2025-05-28 07:27] LABS: Potassium 3.8 mmol/L (3.5-5.1)
[2025-05-28 08:00] VITALS: BP 117/75
[2025-05-28] MEDS: TOPROL XL 12.5 MG PO (09:00)
[2025-05-28] MEDS: PROSCAR 5 MG PO (09:01)
[2025-05-28] MEDS: TAMBOCOR 50 MG PO (09:01)
--- NOTE | 2025-05-28 10:56 | W.PN.HOSP.TC ---
Today's Communication/Plan
-
Discharge
Assessment / Plan
Assessment / Plan
Physical Exam
General: Comfortable and Conversant; No Fever or Chills
HEENT: NormoCephalic, Anicteric, Moist mucous membranes, Atraumatic, PERRLA, [place] Conjunctivae and No Ptosis
Respiratory: Clear; No Wheezes, Rales or Rhonchi
Cardiac: S1/S2, Regular Rhythm and Murmur (2/6 systolic); No Rub, Gallop or Peripheral Edema
Breast: Deferred by me
GI: Soft, Non Tender, Non Distended, Normal Bowel Sounds and No Hepatosplenomegaly
Rectal: Deferred by Provider
Genito-urinary: Deferred by me
Musculoskeletal: No Clubbing, No Cyanosis and Edema, Right Lower Extremity (Right greater trochanter, right mid thigh with surrounding area of resolving ecchymosis yellowish-purple in color); No Edema, Left Upper Extremity, Edema, Right Upper
Extremity or Edema, Left Lower Extremity
Skin: Warm and Dry; No Rash
Neuro: AO x 3, No Sensory Deficits and Other (Unable to ambulate right leg due to hip pain); No Slurred Speech, Facial Droop, Tremors or Sedated
Psych: Calm
Acute Traumatic right hip pain/thigh hematoma with ambulatory dysfunction -hematoma in the setting of chronic anticoagulation with Eliquis.
-Bent over May 19 developed right hip/thigh pain with ecchymosis
- Patient on Eliquis
- MRI right hip/pelvis
- Hold Eliquis -orthopedics does not recommend drainage.
-Ortho consulted
Pain under reasonable control with oral analgesics.
Mild acute blood loss anemia -due to right thigh hematoma. Hemoglobin 12.2 on admission, 11.5 today. Will check CBC in 3 days. Lab slip provided to patient.
Afib paroxysmal new Dx 05/24/2024
History of cardioversion June 2024, September 2024, November 2024, cardiac ablation October 2023
-Continue flecainide
-Hold Eliquis, probably for 1 week. 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
- Follows with Dr. Nguyen [facility]
History of known cardiac murmur
Essential HTN
Continue Toprol XL 12.5 mg a.m.
HLD
- Continue Zocor 40 mg every afternoon
BPH
- Continue Proscar 5 mg a.m., Rapaflo 8 mg at bedtime
DVT prophylaxis
SCDs
Full code
Dispo -medically stable for discharge home today. Patient able to ambulate with rolling walker. Recommend holding Eliquis on discharge. Close outpatient follow-up with PCP, cardiology, orthopedics.
Updated at the bedside. All questions answered.
Karthaus text sent to orthopedics.
32 minutes spent in discharge process.
Anticipated Discharge: Today
Subjective/Interval History
-
Date of Service: May 28, 2025
Patient seen and examined. No complaints.
Objective Data
-
Labs:
Laboratory Results
05/28/25
05:49
WBC 8.3
Hgb 11.5 L
Hct 34.9 L
Plt Count 169
Sodium 137
Potassium 3.8
Chloride 101
Carbon Dioxide 29
BUN 18
Creatinine 0.6 L
Glucose 99
Calcium 8.6
Vital Signs:
Vital Signs
Temp Pulse Resp BP Pulse Ox
97.7 F 71 18 117/75 96
05/28/25 08:00 05/28/25 08:00 05/28/25 08:00 05/28/25 08:00 05/28/25 08:00
I&O
05/27/25 05/28/25 05/29/25
06:59 06:59 06:59
Intake Total 240 / 240 480 / 480
Balance 240 / 240 480 / 480
Review of Systems
-
History Source: Patient
All other systems: Reviewed and negative
--- NOTE | 2025-05-28 11:03 | W.DS.TRANS ---
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
-
Discharge Instructions:
Discharge Diagnosis/Procedures Right thigh hematoma
Diet Regular
Activity As tolerated
Driving Restrictions No driving
Bathing Restrictions None
Blood Work CBC in 3 days
Instructions:
Stand-Alone Forms:
Changes to Home Medications: Yes
Discharge Medications:
DC Medications w/original date entered in [employer]
Toprol Xl 12.5 mg PO DAILY 08/27/20
finasteride 5 mg tablet 1 tab PO DAILY 08/27/20
multivitamin 1 ea PO DAILY 08/27/20
simvastatin 20 mg tablet 40 mg PO QPM 08/27/20
tamsulosin 0.4 mg capsule 0.4 mg PO DAILY 08/27/20
hydrocodone 5 mg-acetaminophen 325 mg tablet 1 tab PO TID PRN Pain #10 tabs 05/20/25
apixaban 5 mg tablet (Eliquis) 5 mg PO BID 05/26/25
Held on 05/28/25. Instructions: Please speak with your eradicator and orthopedist regarding timing of resumption.
flecainide 50 mg tablet 50 mg PO BID 05/26/25
silodosin 8 mg capsule 8 mg PO HS 05/26/25
polyethylene glycol 3350 17 gram oral powder packet 17 g PO DAILYPRN PRN constipation #0 ea 05/28/25
Home Medication Changes
Hold Eliquis
Pending Results: No
[2025-05-28 12:00] VITALS: BP 121/79
--- NOTE | 2025-05-28 12:00 | CM ---
Met with patient and at bedside
JAVIER form explained and signed
Plan: Discharge to home today w/ Outpatient Physical Therapy; will transport patient home
== END 2025-05-28 13:34 | disposition home or self-care (01) ==
LOC: 2 SOUTH 17:57
PROVIDERS: Clinical Nurse Specialist Family Health; Internal Medicine; Physician Assistant; ADMITTING PHYSICIAN Internal Medicine; ATTENDING PHYSICIAN Hospitalist; CONSULT PHYSICIAN Orthopaedic Surgery Hand Surgery; EMERGENCY PHYSICIAN Emergency Medicine; FAMILY PHYSICIAN Family Medicine
DX: S70.11XA Contusion of right thigh, initial encounter (principal); S70.01XA Contusion of right hip, initial encounter; X50.0XXA Overexertion from strenuous movement or load, initial encounter; M25.551 Pain in right hip; D62 Acute posthemorrhagic anemia; I48.0 Paroxysmal atrial fibrillation; R26.2 Difficulty in walking, not elsewhere classified; I10 Essential (primary) hypertension; N40.0 Benign prostatic hyperplasia without lower urinary tract symptoms; I25.10 Atherosclerotic heart disease of native coronary artery without angina pectoris; E78.00 Pure hypercholesterolemia, unspecified; Z98.890 Other specified postprocedural states; Z79.899 Other long term (current) drug therapy; Z79.01 Long term (current) use of anticoagulants; Z85.828 Personal history of other malignant neoplasm of skin; Z88.8 Allergy status to other drugs, medicaments and biological substances; Z98.41 Cataract extraction status, right eye; Z98.42 Cataract extraction status, left eye
CPT/HCPCS: 73723; 80048; 80053; 85025; 85027; 86803; 96374; 97162; 97166; 99284; A9575; G0378